=== PATIENT | female | born 1990 | race Caucasian/White ===

== ENCOUNTER 2019-06-30 20:33 | Inpatient (IN) | payer OTHER ==
[2019-06-30] VITALS (15 sets, daily range): BP systolic 104–138; BP diastolic 66–97; BMI 33.6
[~2019-06-30] VITALS: Ht 165.1 cm; Wt 92.0 kg
--- NOTE | 2019-06-30 20:37 | NUR ---
UNABLE TO COMPLETE SUICIDE SCREENING WITH PT
[2019-06-30 21:18] LABS: BASOPHILS 0.1 % (0-2); EOSINOPHILS 0.1 % (0-7); HEMATOCRIT 34.5 % (36.0-48.0); HEMOGLOBIN 11.6 g/dL (12-16); IMMATURE GRANULOCYTES 0.2 % (0-5); LYMPHOCYTES 16.7 % (15-50); MCH 30.4 pg (26.0-34.0); MCHC 33.6 g/dL (31.0-37.0); MCV 90.3 fL (80.0-100.0); MEAN PLATELET VOLUME 9.1 fL (7.4-10.4); MONOCYTES 6.9 % (2-11); PLATELET COUNT 250 10x3/uL (130-400); RBC 3.82 10x6/uL (4.00-5.40); RDW 13.2 % (11.5-14.5); WBC 9.4 10x3/uL (4.8-10.8)
[2019-06-30 21:29] LABS: CALC OSMOLALITY 261 mosm/kg (275-300); CALCIUM 8.4 mg/dL (8.5-10.1); CARBON DIOXIDE 21.4 mmol/L (21.0-32.0); CHLORIDE - SERUM 101 mmol/L (98-107); CREATININE - SERUM 0.8 mg/dL (0.6-1.3); GLUCOSE 128 mg/dL (74-106); INR 1.13 (0.85-1.17); POTASSIUM - SERUM 3.7 mmol/L (3.5-5.1); SODIUM 130 mmol/L (136-145); UREA NITROGEN 9 mg/dL (7-18); eGFR NON AFRICAN AMERICAN 89 mL/min (90-120)
[2019-06-30 21:44] LABS: ALBUMIN 3.3 g/dL (3.4-5.0); ALKALINE PHOSPHATASE 58 U/L (46-116); ALT (SGPT) 25 U/L (10-68); BILIRUBIN - TOTAL 0.49 mg/dL (0.2-1.3); LIPASE 60 U/L (73-393); MAGNESIUM - SERUM 1.7 mg/dL (1.8-2.4); PRO BNP 37 pg/mL (0-125); PROTEIN - SERUM 6.5 g/dL (6.4-8.2)
--- NOTE | 2019-06-30 22:30 | NUR ---
REC'D PT FROM ER, MONITORS ON AND WORKING, VITALS STABLE, PT SEDATED ON VENT, VENT SETTINGS NOTED. EPPS CATH STAT LOCKED IN PLACE. ORDERS REC'D FROM ECONOMICS PROFESSOR. SPOKE WITH POISION CONTROL, RECOMMENDATIONS INCLUDE MONITORING FOR EKG [employer] CHANGES AND HYPOTENSION, WILL CONTINUE TO OBSERVE.
--- NOTE | 2019-06-30 22:30 | NUR ---
UNABLE TO COMPLETE SUICIDE RISK SCREENING AT THIS TIME, PT SEDATED ON VENT.
--- NOTE | 2019-06-30 23:31 | NUR ---
VERSED INTIATIED PER ORDERS. BEAR HUGGER ON, MONITORS ON AND WORKING. UNABLE TO COMPLETE SUICIDE RISK SCREEENING OR PT HISTORY AT THIS TIME, PT IS SEDATED ON VENT. WILL CONTINUE TO OBSERVE.
[2019-07-01] VITALS (34 sets, daily range): BP systolic 104–145; BP diastolic 65–96; Ht 165.1 cm; Wt 92.0 kg
[2019-07-01 00:54] LABS: CKMB 2.8 U/L (0.0-3.6); CREATINE KINASE 188 UL (21-215); TROPONIN-I < 0.017 ng/mL (0.000-0.060)
--- NOTE | 2019-07-01 01:00 | NUR ---
PT SEDATED, PT WAKES UP VERY EASILY, ATTEMPTS TO PULL AT TUBES AND SIT UP, PT DOES NOT FOLLOW PURPOSFUL COMMANDS AT THIS TIME, MONITORS ON AND WORKING, VITALS STABLE. WILL CONTINUE TO OBSERVE.
--- NOTE | 2019-07-01 03:00 | NUR ---
NO CHANGES, MONITORS ON AND WORKING, VITALS STABLE, SEE FLOW SHEET FOR FURTHER DETAILS. WILL CONTINUE TO OBSERVE.
[2019-07-01 03:32] LABS: BASOPHILS 0.1 % (0-2); EOSINOPHILS 0.4 % (0-7); HEMATOCRIT 33.4 % (36.0-48.0); HEMOGLOBIN 11.2 g/dL (12-16); IMMATURE GRANULOCYTES 0.2 % (0-5); LYMPHOCYTES 10.5 % (15-50); MCHC 33.5 g/dL (31.0-37.0); MCV 89.5 fL (80.0-100.0); MEAN PLATELET VOLUME 9.2 fL (7.4-10.4); MONOCYTES 6.5 % (2-11); NEUTROPHILS 82.3 % (40-80); PLATELET COUNT 266 10x3/uL (130-400); RBC 3.73 10x6/uL (4.00-5.40); RDW 13.3 % (11.5-14.5); WBC 11.2 10x3/uL (4.8-10.8)
[2019-07-01 04:32] LABS: ALBUMIN 3.2 g/dL (3.4-5.0); ALKALINE PHOSPHATASE 56 U/L (46-116); ALT (SGPT) 25 U/L (10-68); BILIRUBIN - TOTAL 0.52 mg/dL (0.2-1.3); CALC OSMOLALITY 262 mosm/kg (275-300); CALCIUM 8.3 mg/dL (8.5-10.1); CARBON DIOXIDE 19.4 mmol/L (21.0-32.0); CHLORIDE - SERUM 102 mmol/L (98-107); CKMB 3.5 U/L (0.0-3.6); CREATINE KINASE 165 UL (21-215); CREATININE - SERUM 0.6 mg/dL (0.6-1.3); GLUCOSE 96 mg/dL (74-106); MAGNESIUM - SERUM 1.8 mg/dL (1.8-2.4); PHOSPHOROUS 3.3 mg/dL (2.5-4.9); POTASSIUM - SERUM 3.5 mmol/L (3.5-5.1); PROTEIN - SERUM 6.3 g/dL (6.4-8.2); SODIUM 132 mmol/L (136-145); TROPONIN-I < 0.017 ng/mL (0.000-0.060); UREA NITROGEN 7 mg/dL (7-18); eGFR NON AFRICAN AMERICAN > 90 mL/min (90-120)
--- NOTE | 2019-07-01 05:00 | NUR ---
PT SEDATED ON VENT, MONITORS ON AND WORKING, SPOKE WITH POISON CONTROL FOR A BRIEF FOLLOW UP, NO NEW ORDERS AT THIS TIME, VITALS STABLE, WILL CONTINUE TO OBSERVE.
--- NOTE | 2019-07-01 07:30 | NUR ---
REPORT RECEIVED. ASSESSMENT COMPLETE PER FLOW SHEET. VSS. NO NEW CHANGES PT RESTING COMFORTABLY WILL CONTINUE TO MONITOR
--- NOTE | 2019-07-01 09:00 | NUR ---
DR COLINDRES AT BEDSIDE GIVEN UDPATE
--- NOTE | 2019-07-01 11:20 | NUR ---
REASSESSMENT COMPLETE PER FLOW SHEET. VSS. NO NEW CHANGES WILL CONTINUE TO MONITOR
[2019-07-01 11:54] LABS: UDS - AMPHET NEGATIVE QUAL (NEGATIVE); UDS - BARB NEGATIVE QUAL (NEGATIVE); UDS - BENZO POSITIVE QUAL (NEGATIVE); UDS - COCAINE NEGATIVE QUAL (NEGATIVE); UDS - OPIATE NEGATIVE QUAL (NEGATIVE); UDS - PCP NEGATIVE QUAL (NEGATIVE); UDS - THC NEGATIVE QUAL (NEGATIVE)
--- NOTE | 2019-07-01 13:00 | NUR ---
DR TAVARES AT BEDSIDE GIVEN UDPATE
[2019-07-01 14:08] LABS: CKMB 2.6 U/L (0.0-3.6); CREATINE KINASE 156 UL (21-215); TROPONIN-I < 0.017 ng/mL (0.000-0.060)
--- NOTE | 2019-07-01 15:15 | NUR ---
REPORT RECEIVED ASSESSMENT COMPLETE PER FLOW SHEET. VSS. NO NEW CHANGE SPT RESTING COMFORTABLY WILL CONTINUE TO MONITOR
--- NOTE | 2019-07-01 17:30 | NUR ---
VENT ALARMING RT AT BEDSIDE GIVEN UDPATE NO NEW CHANGES
--- NOTE | 2019-07-01 18:27 | MORECARE ---
CASE MANAGEMENT DISCHARGE SUMMARY PATIENT: LOU SALVADOR UNIT: [id number] ADM DATE: 06/30/19 AGE: 29 : 86 SEX: F ROOM/BED: D.2304 AUTHOR: JAZMIN HARPER PHYSICIAN: REFERRING PHYSICIAN: KUNAL MARSHALL MD DATE OF SERVICE: 07/01/19 Discharge Plan Patient Name: LOU SALVADOR Facility: [facility]:[place] : 1990 Planned Disposition: Anticipated Discharge Date: Discharge Date: Expected LOS: Initial Reviewer: [email or web address] Initial Review Date: 06/30/2019 Generated: 07/01/19 7:26 pm Comments DCP- Discharge Planning Updated by [id number]: Aimee Blankenship on 07/01/19 5:[address] CM attempted to visit with patient regarding discharge planning/ needs. Patient currently on vent no family available. CM will continue to follow and assist as needed with discharge planning / needs Patient Name: LOU SALVADOR Page [phone] at 1827 All edits/amendments must be made on the electronic document DICTATION DATE: 07/01/191825 DIRECTOR OF VOCATIONAL GUIDANCE: RASHAUN 07/01/191825 RPT#: [id number] DC DATE: STATUS: ADM IN [facility] [address] [place] [address] END OF REPORT
--- NOTE | 2019-07-01 19:00 | NUR ---
SHIFT ASSESSMENT COMPLETED. PT CARE ASSUMED. MONITORS ON AND WORKING, PT SEDATED ON VENT, EPPS STAT LOCKED IN PLACE. HEART RATE 117, MD AWARE. SEE FLOW SHEET FOR FURTHER DETIALS. WILL CONTINUE TO OBSERVE.
--- NOTE | 2019-07-01 21:00 | NUR ---
SPOKE WITH POISON CONTROL. NO NEW ORDERS. MONITORS ON AND WORKING, WILL CONTINUE TO OBSERVE.
--- NOTE | 2019-07-01 23:00 | NUR ---
PT TURNED AND REPOSITIONED FOR COMFORT. MONITORS ON AND WORKING, VITALS STABLE. SEE FLOW SHEET FOR FURTHER DETAILS. WILL CONTINUE TO OBSERVE.
[2019-07-02] VITALS (24 sets, daily range): BP systolic 106–140; BP diastolic 64–87
--- NOTE | 2019-07-02 01:00 | NUR ---
PT TURNED AND REPOSITIONED FOR COMFORT, MONITORS ON AND WORKING, VITALS STABLE. WILL CONTINUE TO OBSERVE.
[2019-07-02 02:58] LABS: BASOPHILS 0.1 % (0-2); EOSINOPHILS 0.2 % (0-7); HEMATOCRIT 34.5 % (36.0-48.0); HEMOGLOBIN 11.3 g/dL (12-16); IMMATURE GRANULOCYTES 0.1 % (0-5); LYMPHOCYTES 17.5 % (15-50); MCHC 32.8 g/dL (31.0-37.0); MCV 91.5 fL (80.0-100.0); MEAN PLATELET VOLUME 9.4 fL (7.4-10.4); MONOCYTES 11.1 % (2-11); PLATELET COUNT 250 10x3/uL (130-400); RBC 3.77 10x6/uL (4.00-5.40); RDW 13.9 % (11.5-14.5); WBC 9.6 10x3/uL (4.8-10.8)
--- NOTE | 2019-07-02 03:00 | NUR ---
NO CHANGES, PT TURNED AND REPOSITIONED FOR COMFORT, MONITORS ON AND WORKING, SEE FLOW SHEET FOR FURTHER DETAILS WILL CONTINUE TO OBSERVE.
[2019-07-02 03:23] LABS: ALBUMIN 2.9 g/dL (3.4-5.0); ALKALINE PHOSPHATASE 60 U/L (46-116); ALT (SGPT) 21 U/L (10-68); BILIRUBIN - TOTAL 0.47 mg/dL (0.2-1.3); CALC OSMOLALITY 273 mosm/kg (275-300); CALCIUM 8.5 mg/dL (8.5-10.1); CARBON DIOXIDE 22.6 mmol/L (21.0-32.0); CHLORIDE - SERUM 107 mmol/L (98-107); CREATININE - SERUM 0.8 mg/dL (0.6-1.3); GLUCOSE 93 mg/dL (74-106); MAGNESIUM - SERUM 2.1 mg/dL (1.8-2.4); PHOSPHOROUS 1.9 mg/dL (2.5-4.9); POTASSIUM - SERUM 3.3 mmol/L (3.5-5.1); PROTEIN - SERUM 6.2 g/dL (6.4-8.2); SODIUM 138 mmol/L (136-145); THYROID STIMULATING HORMONE 1.13 uIU/mL (0.36-3.74); TROPONIN-I < 0.017 ng/mL (0.000-0.060); UREA NITROGEN 6 mg/dL (7-18); eGFR NON AFRICAN AMERICAN 89 mL/min (90-120)
--- NOTE | 2019-07-02 05:00 | NUR ---
PT TURNED AND REPOSITIONED FOR COMFORT. MONITORS ON AND WORKING..VITALS STABLE. PT REMAINS SEDATED ON VENT.
--- NOTE | 2019-07-02 07:09 | NUR ---
UNABLE TO DETERMINE ETT SIZE SINCE IS NOT MARKED. PER RT, ALSO UNABLE TO SEE ANY IDENTIFIERS FOR ETT SIZE SINCE NOT PROVIDED ON ETT.
--- NOTE | 2019-07-02 08:05 | NUR ---
LYING IN BED ON VENT AT THIS TIME. NO ACUTE DISTRESS NOTED. VSS. PT AWAKENS TO STIMULATION. TURNED Q2H. ORAL CARE PROVIDED Q2H. WILL CONTINUE PLAN OF CARE.
--- NOTE | 2019-07-02 10:01 | NUR ---
NO ACUTE DISTRESS NOTED. NO CHANGE. VSS. BED ALARM ON. WILL CONTINUE PLAN OF CARE.
--- NOTE | 2019-07-02 11:16 | NUR ---
TEMP SPIKE TO 102.[address] TAVARES NOTIFIED. STATED TO GIVE RECC TYLENOL X 1 DOSE AND TO DO A URINE CULTURE. HE STATED SINCE A BLOOD CULTURE WAS DONE YESTERDAY THEN NO NEED TO RECHECK NOW. NOTIFED PHYSICIAN THAT WOOD [employer]UB NECK WHIPPER DID NOT WANT PT TO RECIEVE TYLENOL BECAUSE SHE WAS POSIT[facility]. ALSO UDS SHOWED HER POSITIVE FOR BENZOS. DR TAVARES STATED SINCE HER LIVER FUNCTIONS ARE NORMAL THEN GO AHEAD AND GIVE THE ONE TIME DOSE OF RECTAL TYLENOL. WILL CONTINUE PLAN OF CARE.
--- NOTE | 2019-07-02 11:55 | NUR ---
PER DR COLINDRES, ALSO OBTAIN BLOOD CULTURES FOR FEVER.
--- NOTE | 2019-07-02 11:59 | NUR ---
CHG BATH PROVIDED WITH TOTAL LINEN CHANGE AT THIS TIME. ALSO EPPS CARE PROVIDED.
--- NOTE | 2019-07-02 12:00 | NUR ---
PER DR COLINDRES, WILL DO A BRONCHOSCOPY TODAY, NO FAMILY CONTACT AVALIABLE ON FACESHEET. PHYSICIAN NOTIFIED OF THIS.
--- NOTE | 2019-07-02 12:08 | NUR ---
PER DR COLINDRES, CHANGE OGT TO LOW INT SUCTIONING.
--- NOTE | 2019-07-02 12:35 | NUR ---
ATTEMPTED TO CALL PTS MOTHER LISTED ON FACESHEET WHICH STATED HER NAME TO BE ZACK BLANTON, WHEN CALLED RECIEVED A VOICEMAIL STATING AIDA BLANTON IS NOT AVALIABLE. LEFT A VOICEMAIL FOR AIDA TO CALL BACK. NO ACUTE DISTRESS NOTED. WILL CONTINUE PLAN OF CARE.
--- NOTE | 2019-07-02 13:28 | NUR ---
NO CALLBACK FROM FAMILY NOTED AT THIS TIME. PER DR COLINDRES WILL DO URGENT BRONCHOSCOPY NOW.
[2019-07-02 13:36] LABS: APPEARANCE CLEAR (CLEAR); BILIRUBIN NEGATIVE (NEGATIVE); COLOR YELLOW (YELLOW); GLUCOSE NEGATIVE (NEGATIVE); KETONE NEGATIVE (NEGATIVE); NITRITE NEGATIVE (NEGATIVE); PROTEIN NEGATIVE (NEGATIVE); UROBILINOGEN NORMAL (NORMAL)
[2019-07-02 13:37] LABS: BACTERIA FEW /hpf (NEGATIVE); EPITHELIAL CELLS 0-5 /hpf (0-5); WHITE CELLS - URINE OCC /hpf (NEGATIVE)
--- NOTE | 2019-07-02 13:53 | NUR ---
RECIEVED CALLBACK FROM PTS MOTHER, AVERY BLANTON, UPDATES PROVIDED. PTS MOTHER ALSO SPOKE WITH DR TAVARES, ALL QUESTIONS AND CONCERNS ADRESSED. PTS MOTHER STATED SHE IS ON HER WAY TO SEE PT.
--- NOTE | 2019-07-02 15:37 | NUR ---
FEVER INCREASED TO 102.8 ICE PACKS PLACED AT THIS TIME.
--- NOTE | 2019-07-02 15:39 | NUR ---
CRITICAL LAB CALLED TO DR TAVARES FOR POTASSIUM LEVEL OF 2.5. HE STATED TO COVER PER ELECTROLYTE PROTOCOL AND ALSO ADD 20MEQ K TO THE D5NS. VSS. WILL CONTINUE PLAN OF CARE.
--- NOTE | 2019-07-02 16:33 | NUR ---
PTS AUNT HERE AT BEDSIDE TO SEE PT, STATING THAT PTS MOTHER WILL BE HERE LATER TONIGHT. CODE WORD PROVIDED BY AUNT. UPDATES PROVIDED AFTER CODE WORD CONFIRMED. VSS. WILL CONTINUE PLAN OF CARE.
--- NOTE | 2019-07-02 16:59 | NUR ---
WILL START TUBE FEEDS WHEN RECIEVE [place] PUMP FROM DEPARTMENT CHAIRPERSON.
--- NOTE | 2019-07-02 17:40 | NUR ---
TEMP RECHECK IS 103.2.
--- NOTE | 2019-07-02 17:45 | NUR ---
ALTHOUGH PT HAS RECIEVED TYLENOL, ROOM TEMPERATURE HAS BEEN DECREASED, LINENS REMOVED, AND ICE PACKS PLACED, PT TEMP HAS INCREASED TO 103.2. CALLED DR TAVARES TO NOTIFY, NO ANSWER NOTED. DR COLINDRES PAGED FOR FURTHER ORDERS. WAITING FOR CALLBACK.
--- NOTE | 2019-07-02 17:47 | NUR ---
DR COLINDRES NOTIFIED OF TEMP OF 103.2, STATED COULD HAVE BEEN EXPECTED AFTER THE BRONCH. OKAY TO GIVE THE PRN TYLENOL.
[2019-07-03] VITALS (23 sets, daily range): BP systolic 102–138; BP diastolic 55–98
[2019-07-03 03:20] LABS: BASOPHILS 0.2 % (0-2); EOSINOPHILS 0.5 % (0-7); HEMATOCRIT 32.9 % (36.0-48.0); IMMATURE GRANULOCYTES 0.2 % (0-5); LYMPHOCYTES 13.3 % (15-50); MCH 30.6 pg (26.0-34.0); MCHC 33.4 g/dL (31.0-37.0); MCV 91.6 fL (80.0-100.0); MEAN PLATELET VOLUME 9.5 fL (7.4-10.4); MONOCYTES 8.9 % (2-11); NEUTROPHILS 76.9 % (40-80); PLATELET COUNT 225 10x3/uL (130-400); RBC 3.59 10x6/uL (4.00-5.40); RDW 13.9 % (11.5-14.5)
[2019-07-03 03:22] LABS: WBC 14.9 10x3/uL (4.8-10.8)
[2019-07-03 05:49] LABS: ALBUMIN 2.5 g/dL (3.4-5.0); ALKALINE PHOSPHATASE 59 U/L (46-116); ALT (SGPT) 21 U/L (10-68); CALC OSMOLALITY 280 mosm/kg (275-300); CALCIUM 7.9 mg/dL (8.5-10.1); CHLORIDE - SERUM 113 mmol/L (98-107); CREATININE - SERUM 0.7 mg/dL (0.6-1.3); GLUCOSE 96 mg/dL (74-106); MAGNESIUM - SERUM 1.9 mg/dL (1.8-2.4); PHOSPHOROUS 1.8 mg/dL (2.5-4.9); POTASSIUM - SERUM 3.5 mmol/L (3.5-5.1); PRO BNP 37 pg/mL (0-125); PROTEIN - SERUM 5.8 g/dL (6.4-8.2); SODIUM 142 mmol/L (136-145); UREA NITROGEN 6 mg/dL (7-18); eGFR NON AFRICAN AMERICAN > 90 mL/min (90-120)
--- NOTE | 2019-07-03 07:30 | NUR ---
LYING IN BED ON VENT AT THIS TIME. VSS. NO ACUTE DISTRESS NOTED. PT IS AFEBRILE. TURNED Q2H. ORAL CARE PROVIDED Q2H. WILL CONTINUE PLAN OF CARE.
--- NOTE | 2019-07-03 09:31 | NUR ---
INCONTINENT BOWEL MOVEMENT NOTED, DARK AND LIQUID. TOTAL LINEN CHANGE PROVIDED, JOSH CARE AND EPPS CARE PROVIDED. NO ACUTE DISTRESS NOTED. CALL LIGHT IN REACH. WILL CONTINUE PLAN OF CARE.
--- NOTE | 2019-07-03 11:31 | NUR ---
PTS MOTHER STATED THAT SHE WANTED TO CHANGE THE CALL IN CODE BECUASE SHE FELT LIKE TOO MANY FAMILY MEMBERS KNEW THE CODE AND SHE WANTED TO CHANGE IT. CALL IN CODE UPDATED FROM [place] TO [place]. ALSO PTS MOTHER STATED SHE WAS GOING TO BRING SMALL KIDS TO SEE PT, PTS MOTHER WAS INFORMED THAT CHILDREN UNDER 14 YEARS OLD ARE UNABLE TO COME INTO THE ICU. VSS. WILL CONTINUE PLAN OF CARE.
--- NOTE | 2019-07-03 12:03 | NUR ---
PT FAMILY CAME IN ROOM WITH A CHILD ABOUT THE AGE OF 12 TO SEE PT, FAMILY NOTIFIED THAT CHILDREN UNDER 14 ARE UNABLE TO COME INTO UNIT PER HOSPITAL POLICY TO HELP PROTECT THE CHILD'S IMMUNE SYSTEM FROM EXPOSURE. SECURITY ESCORTED INDIVIDUALS OUT OF UNIT. NO ACUTE DISTRESS NOTED. WILL CONTINUE PLAN OF CARE.
--- NOTE | 2019-07-03 14:04 | NUR ---
TUBE FEED RATE INCREASED FROM 20 ML/HR TO 30 ML/HR. RESIDUALS NOTED AT 5ML.
--- NOTE | 2019-07-03 14:28 | NUR ---
VISITORS AT BEDSIDE TO SEE PT, REQUESTED UPDATE BUT DID NOT KNOW PASSWORD. NOTIFIED VISITORS THAT WE ARE UNABLE TO GIVE INFORMATION WITHOUT A PASSWORD, THEY STATED THEY WOULD TRY TO GET AHOLD OF PTS MOTHER TO FIND OUT MORE INFORMATION. VSS. NO ACUTE DISTRESS NOTED. WILL CONTINUE PLAN OF CARE.
--- NOTE | 2019-07-03 16:16 | NUR ---
CHG BATH GIVEN TO PT. INCONTINENT BOWEL MOVEMENT NOTED. EPPS CARE PROVIDED ALONG WITH TOTAL LINEN CHANGE. ORAL CARE PROVIDED IS PROVIDED Q2H. TURNED Q2H. NO ACUTE DISTRESS NOTED. VSS. FAMILY AT BEDSIDE AND AFTER CALL IN CODE CONFIRMED THEN UPDATES PROVIDED. NO ACUTE DISTRESS NOTED. WILL CONTINUE PLAN OF CARE.
--- NOTE | 2019-07-03 17:30 | NUR ---
FAMILY AT BEDSIDE AT THIS TIME. NO ACUTE DISTRESS NOTED. VSS. ORAL CARE AND REPOSITIONING PROVIDED Q2H. WILL CONTINUE PLAN OF CARE.
--- NOTE | 2019-07-03 19:00 | NUR ---
SHIFT ASSESSMENT COMPLETE. VS STABLE. NO VISUAL CUES OF DISTRESS NOTED. WILL CONTINUE TO MONITOR.
--- NOTE | 2019-07-03 21:00 | NUR ---
VS STABLE. NO DISTRESS NOTED. WILL MONITOR.
--- NOTE | 2019-07-03 23:00 | NUR ---
VS STABLE. NO DISTRESS NOTED. WILL MONITOR.
[2019-07-04] VITALS (25 sets, daily range): BP systolic 107–139; BP diastolic 61–93
--- NOTE | 2019-07-04 01:00 | NUR ---
VS STABLE. NO DISTRESS NOTED. WILL MONITOR.
--- NOTE | 2019-07-04 03:00 | NUR ---
VS STABLE. NO DISTRESS NOTED. WILL MONITOR.
[2019-07-04 04:02] LABS: BASOPHILS 0.1 % (0-2); EOSINOPHILS 1.6 % (0-7); HEMATOCRIT 33.6 % (36.0-48.0); HEMOGLOBIN 11.2 g/dL (12-16); IMMATURE GRANULOCYTES 0.2 % (0-5); LYMPHOCYTES 19.2 % (15-50); MCH 31.1 pg (26.0-34.0); MCHC 33.3 g/dL (31.0-37.0); MCV 93.3 fL (80.0-100.0); MEAN PLATELET VOLUME 10.4 fL (7.4-10.4); MONOCYTES 9.6 % (2-11); NEUTROPHILS 69.3 % (40-80); PLATELET COUNT 239 10x3/uL (130-400); RDW 14.5 % (11.5-14.5)
[2019-07-04 04:07] LABS: WBC 8.6 10x3/uL (4.8-10.8)
[2019-07-04 04:25] LABS: ALBUMIN 2.6 g/dL (3.4-5.0); ALKALINE PHOSPHATASE 58 U/L (46-116); ALT (SGPT) 26 U/L (10-68); BILIRUBIN - TOTAL 0.87 mg/dL (0.2-1.3); CALC OSMOLALITY 280 mosm/kg (275-300); CALCIUM 8.1 mg/dL (8.5-10.1); CARBON DIOXIDE 18.5 mmol/L (21.0-32.0); CHLORIDE - SERUM 112 mmol/L (98-107); GLUCOSE 102 mg/dL (74-106); MAGNESIUM - SERUM 1.8 mg/dL (1.8-2.4); POTASSIUM - SERUM 4.1 mmol/L (3.5-5.1); PROTEIN - SERUM 5.6 g/dL (6.4-8.2); SODIUM 142 mmol/L (136-145); UREA NITROGEN 7 mg/dL (7-18)
[2019-07-04 04:28] LABS: CREATININE - SERUM 0.5 mg/dL (0.6-1.3)
[2019-07-04 04:29] LABS: eGFR NON AFRICAN AMERICAN > 90 mL/min (90-120)
--- NOTE | 2019-07-04 05:00 | NUR ---
VS STABLE. NO DISTRESS NOTED. WILL MONITOR.
--- NOTE | 2019-07-04 07:00 | NUR ---
PT REPORT RECEIVED FROM CLINICAL PSYCHOLOGY TEACHER NURSE. SHIFT ASSESSMENT COMPLETED. NO VISIBLE SIGNS OF DISTRESS NOTED. WILL CONTINUE TO MONITOR
--- NOTE | 2019-07-04 08:30 | NUR ---
PT HAD BM. CLEANED UP PT AND CHANGED LINEN. PT TOLERATED WELL. WILL CONTINUE TO MONITOR
--- NOTE | 2019-07-04 09:00 | NUR ---
PT RESTING IN BED. NO VISIBLE SIGNS OF DISTRESS NOTED. WILL CONTINUE TO MONITOR
--- NOTE | 2019-07-04 09:27 | NUR ---
NUTRITION F/U PT REMAINS ON VENT. TOLERATING PULMOCARE TUBE FEEDS AT 40 CC/HR WITH GOAL RATE 45 CC/HR. WILL CONTINUE TO PROVIDE PULMOCARE, MONITOR PT PROGESS. RD FOLLOWING
--- NOTE | 2019-07-04 11:00 | NUR ---
PT RESTING IN BED. REASSESSMENT COMPLETED. WILL CONTINUE TO MONITOR
--- NOTE | 2019-07-04 13:00 | NUR ---
PT HAD BM. CLEANED PT UP AND CHANGED LINEN. WILL CONTINUE TO MONITOR
--- NOTE | 2019-07-04 15:00 | NUR ---
PT HAD ANOTHER BM. CLEANED PT UP AND CHANGED LINEN. REASSESSMENT COMPLETED AT THIS TIME. WILL CONTINUE TO MONITOR
--- NOTE | 2019-07-04 17:00 | NUR ---
PT RESTING IN BED. NO VISIBLE SIGNS OF DISTRESS NOTED. WILL CONTINUE TO MONIITOR
[2019-07-05] VITALS (25 sets, daily range): BP systolic 111–164; BP diastolic 59–98
[2019-07-05 04:48] LABS: BASOPHILS 0.3 % (0-2); EOSINOPHILS 2.1 % (0-7); HEMATOCRIT 30.4 % (36.0-48.0); HEMOGLOBIN 9.9 g/dL (12-16); IMMATURE GRANULOCYTES 0.6 % (0-5); LYMPHOCYTES 18.4 % (15-50); MCH 30.1 pg (26.0-34.0); MCHC 32.6 g/dL (31.0-37.0); MCV 92.4 fL (80.0-100.0); MEAN PLATELET VOLUME 9.8 fL (7.4-10.4); MONOCYTES 10.5 % (2-11); NEUTROPHILS 68.1 % (40-80); PLATELET COUNT 244 10x3/uL (130-400); RBC 3.29 10x6/uL (4.00-5.40); RDW 14.3 % (11.5-14.5); WBC 6.7 10x3/uL (4.8-10.8)
[2019-07-05 05:23] LABS: ALBUMIN 2.4 g/dL (3.4-5.0); ALKALINE PHOSPHATASE 56 U/L (46-116); ALT (SGPT) 20 U/L (10-68); BILIRUBIN - TOTAL 0.34 mg/dL (0.2-1.3); CALC OSMOLALITY 283 mosm/kg (275-300); CALCIUM 7.5 mg/dL (8.5-10.1); CARBON DIOXIDE 18.5 mmol/L (21.0-32.0); CHLORIDE - SERUM 114 mmol/L (98-107); CREATININE - SERUM 0.5 mg/dL (0.6-1.3); GLUCOSE 84 mg/dL (74-106); MAGNESIUM - SERUM 1.7 mg/dL (1.8-2.4); PHOSPHOROUS 3.6 mg/dL (2.5-4.9); POTASSIUM - SERUM 3.9 mmol/L (3.5-5.1); PROTEIN - SERUM 5.1 g/dL (6.4-8.2); SODIUM 144 mmol/L (136-145); UREA NITROGEN 8 mg/dL (7-18); eGFR NON AFRICAN AMERICAN > 90 mL/min (90-120)
--- NOTE | 2019-07-05 07:00 | NUR ---
PT REPORT RECEIVED FROM RRT NURSE. NO VISIBLE SIGNS OF DISTRESS NOTED. SHIFT ASSESSMENT COMPLETED. WILL CONTINUE TO MONITOR
--- NOTE | 2019-07-05 09:00 | NUR ---
PT RESTING IN BED. FAMILY AT BEDSIDE. NO VISIBLE SIGNS OF DISTRESS NOTED. ORAL CARE PROVIDED. WILL CONTINUE TO MONITOR
--- NOTE | 2019-07-05 10:30 | NUR ---
DR COLINDRES AT BEDSIDE. UPDATE GIVEN. PLAN TO DO A BRONCHOSCOPY ON PT THEN START WITH CPAP TRIALS. PT IS COMBATIVE KICKING AT STAFF. WILL CONTINUE TO MONITOR
--- NOTE | 2019-07-05 10:40 | NUR ---
CONSENT FOR BRONCHOSCOPY SIGNED BY PT MOTHER. WILL CONITNUE TO MONITOR
--- NOTE | 2019-07-05 11:15 | NUR ---
BRONCHOSCOPY COMPLETED. PT TOLERATED WELL. NO VISIBLE SIGNS OF DISTRESS NOTED. REASSESSMENT COMPLETED. WILL CONTINUE TO MONITOR
--- NOTE | 2019-07-05 13:00 | NUR ---
PT RESTING IN BED. SLIGHTLY AGITATED. PT HAD BM. CLEANED UP AND CHANGED LINEN. WILL CONTINUE TO MONITOR
--- NOTE | 2019-07-05 14:00 | NUR ---
CPAP TRIAL STARTED. NO VISIBLE SIGNS OF DISTRESS NOTED. WILL CONTINUE TO MONITOR PT.
--- NOTE | 2019-07-05 14:06 | MORECARE ---
CASE MANAGEMENT DISCHARGE SUMMARY PATIENT: LOU SALVADOR UNIT: [id number] ADM DATE: 06/30/19 AGE: 29 : 86 SEX: F ROOM/BED: D.2304 AUTHOR: JAZMIN HARPER PHYSICIAN: REFERRING PHYSICIAN: KUNAL MARSHALL MD DATE OF SERVICE: 07/05/19 Discharge Plan Patient Name: LOU SALVADOR Facility: [facility]:[place] : 1990 Planned Disposition: Anticipated Discharge Date: Discharge Date: Expected LOS: Initial Reviewer: [email or web address] Initial Review Date: 07/04/2019 Generated: 07/05/19 3:06 pm DCP- Discharge Planning Updated by AD: Aimee Blankenship on 07/01/19 5:[address] CM attempted to visit with patient regarding discharge planning/ needs. Patient currently on vent no family available. CM will continue to follow and assist as needed with discharge planning / needs DCPIA - Discharge Planning Initial Assessment Updated by [email or web address]: Aimee Blankenship on 07/05/19 2:04 pm * How many steps to enter\exit or inside your home? * PCP unknown * Pharmacy unkown * Preadmission Environment Home Alone * ADLs Independent * Equipment None * List name and contact numbers for known caregivers / representatives who currently or will assist patient after discharge: Kelley Ballard - mother- [phone] * Verbal permission to speak to the caregivers and representatives has been obtained from the patient. N/A * Community resources currently utilized None Last DP export: 07/01/19 5:27 Patient Name: LOU SALVADOR Page [phone] at 1406 All edits/amendments must be made on the electronic document DICTATION DATE: 07/05/191405 PAINTING TECHNICIAN: RASHAUN 07/05/191405 RPT#: [id number] DC DATE: STATUS: ADM IN [facility] [address] [place] [address] END OF REPORT
--- NOTE | 2019-07-05 14:15 | NUR ---
CPAP TRIAL STOPPED. PT EXTREMELY ANXIOUS. TACHYPNIC. WILL CONTINUE TO MONITOR
--- NOTE | 2019-07-05 14:16 | MORECARE ---
CASE MANAGEMENT DISCHARGE SUMMARY PATIENT: LOU SALVADOR UNIT: [id number] ADM DATE: 06/30/19 AGE: 29 : 86 SEX: F ROOM/BED: D.2304 AUTHOR: LEROY,DOC PHYSICIAN: REFERRING PHYSICIAN: KUNAL MARSHALL MD DATE OF SERVICE: 07/05/19 Discharge Plan Patient Name: LOU SALVADOR Facility: [facility]:[place] : 1990 Planned Disposition: Anticipated Discharge Date: Discharge Date: Expected LOS: Initial Reviewer: [email or web address] Initial Review Date: 07/04/2019 Generated: 07/05/19 3:15 pm Comments DCP- Discharge Planning Updated by [email or web address]: Aimee Blankenship on 07/05/19 1:[address] LATE ENTRY 07/04/19 Patient Name: LOU SALVADOR Admission Status: ER Accout number: [id number] Admission Date: 06-30-2019 : 1990 Admission Diagnosis: Attending: KUNAL CROSS Current LOS: 5 Anticipated DC Date: Planned Disposition: Primary Insurance: [facility] Discharge Planning Comments: CM met with patient's mother Kelley Ballard to complete initial dc planning assessment. Patient is currently still on ventilator. CM educated patient's mother on the CM role and verbal consent given by patient to complete assessment. Patient's mother doesn't know much of the information CM asked. Patient will most likely need some psychiatric care post discharge. Uncertain of disposition at this. CM will continue to follow and will assist as needed with dc plans/needs. Cell Builder: Aimee Blankenship DCP- Discharge Planning Updated by [id number]: Aimee Blankenship on 07/01/19 5:[address] CM attempted to visit with patient regarding discharge planning/ needs. Patient currently on vent no family available. CM will continue to follow and assist as needed with discharge planning / needs DCPIA - Discharge Planning Initial Assessment Updated by [email or web address]: Aimee Blankenship on 07/05/19 2:04 pm * How many steps to enter\exit or inside your home? * PCP unknown * Pharmacy unkown * Preadmission Environment Home Alone * ADLs Independent * Equipment None * List name and contact numbers for known caregivers / representatives who currently or will assist patient after discharge: Kelley Ballard - mother- [phone] * Verbal permission to speak to the caregivers and representatives has been obtained from the patient. N/A * Community resources currently utilized None Last DP export: 07/05/19 1:06 Patient Name: LOU SALVADOR Page [phone] at 1416 All edits/amendments must be made on the electronic document DICTATION DATE: 07/05/191414 HULL INSPECTOR: RASHAUN 07/05/191414 RPT#: [id number] DC DATE: STATUS: ADM IN [facility] [address] [place] [address] END OF REPORT
--- NOTE | 2019-07-05 14:30 | NUR ---
PT TRIED CLIMBING OUT OF BED. SEDATION INCREASED. PT LAYING BACK DOWN NOW. WILL CONTINUE TO MONITOR
--- NOTE | 2019-07-05 15:00 | NUR ---
PT RESTING IN BED. NO VISIBLE SIGNS OF DISTRESS NOTED. REASSESSMENT COMPLETED. WILL CONTINUE TO MONITOR
--- NOTE | 2019-07-05 17:00 | NUR ---
PT RESTING IN BED. NO VISIBLE SIGNS OF DISTRESS NOTED. WILL CONTINUE TO MONITOR
--- NOTE | 2019-07-05 19:00 | NUR ---
SHIFT ASSESSMENT COMPLETED. PT CARE ASSUMED. MONITORS ON AND WORKING, VITALS STABLE. SEE FLOW SHEET FOR FURTHER DETAILS WILL CONTINUE TO OSBERVE.
--- NOTE | 2019-07-05 21:00 | NUR ---
FAMILY AT BEDSIDE, UPDATE PROVIDED, MONITORS ON AND WORKING, VITALS STABLE. PT TURNED AND REPOSITIONED FOR COMFORT. WILL CONTINUE TO OBSERVE.
--- NOTE | 2019-07-05 23:00 | NUR ---
PT TURNED AND REPOSITIONED FOR COMFORT, MONITORS ON AND WORKING VITALS STABLE. SEE FLOW SHEET FOR FURTHER DETAILS. WILL CONTINUE TO OBSERVE.
[2019-07-06] VITALS (24 sets, daily range): BP systolic 120–163; BP diastolic 55–107
--- NOTE | 2019-07-06 01:00 | NUR ---
PT TURNED AND REPOSITIONED FOR COMFORT, ORAL CARE PROVIDED AT THIS TIME WELL. MONITORS ON AND WORKING, VITALS STABLE, EPPS STAT LOCKED IN PLACE, WILL CONTINUE TO OBSERVE.
--- NOTE | 2019-07-06 03:00 | NUR ---
PT TURNED AND REPOSITIONED FOR COMFORT, MONITORS ON AND WORKING, VITALS STABLE. NO FURTHER CHANGES AT THIS POINT, SEE FLOW SHEET FOR FURTHER DETAILS. WILL CONTINUE TO OBSERVE.
[2019-07-06 05:00] LABS: CALC OSMOLALITY 285 mosm/kg (275-300); CALCIUM 8.6 mg/dL (8.5-10.1); CHLORIDE - SERUM 110 mmol/L (98-107); CREATININE - SERUM 0.5 mg/dL (0.6-1.3); GLUCOSE 96 mg/dL (74-106); POTASSIUM - SERUM 3.9 mmol/L (3.5-5.1); SODIUM 144 mmol/L (136-145); UREA NITROGEN 9 mg/dL (7-18); eGFR NON AFRICAN AMERICAN > 90 mL/min (90-120)
--- NOTE | 2019-07-06 05:00 | NUR ---
PT TURNED AND REPOSITIONED FOR COMFORT, MONITORS ON AND WORKING, VITALS STABLE. NO FURTHER CHANGES NOTED AT THIS TIME. WILL CONTINUE TO OBSERVE.
[2019-07-06 05:02] LABS: CARBON DIOXIDE 23.3 mmol/L (21.0-32.0)
[2019-07-06 06:24] LABS: BASOPHILS 0.3 % (0-2); EOSINOPHILS 2.8 % (0-7); HEMATOCRIT 30.9 % (36.0-48.0); HEMOGLOBIN 10.4 g/dL (12-16); IMMATURE GRANULOCYTES 0.1 % (0-5); LYMPHOCYTES 18.5 % (15-50); MCHC 33.7 g/dL (31.0-37.0); MEAN PLATELET VOLUME 9.5 fL (7.4-10.4); MONOCYTES 9.5 % (2-11); NEUTROPHILS 68.8 % (40-80); PLATELET COUNT 270 10x3/uL (130-400); RBC 3.36 10x6/uL (4.00-5.40); WBC 6.8 10x3/uL (4.8-10.8)
--- NOTE | 2019-07-06 07:00 | NUR ---
REPORT RECEIVED. ASSESSMENT COMPLETE PER FLOW SHEET. VSS. ORAL ENODTRACH CARE ADM. REPOSITIONED FOR COMFORT WILL CONTINUE TO MONITOR
--- NOTE | 2019-07-06 08:47 | NUR ---
Nutrition follow-up: Pt remains intubated; weaning trials today Pulmocare infusing @ 45 ml/hr; pt tolerating Labs reviewed Wt: 208# +BM RDN following.
--- NOTE | 2019-07-06 09:15 | NUR ---
FAMILY AT BEDSIDE GIVEN UPDATE
--- NOTE | 2019-07-06 11:00 | NUR ---
REASSESSMENT COMPLETE PER FLOW SHEET VSS NO NEW CHANGES WILL CONTINUE TO MONITOR
--- NOTE | 2019-07-06 11:56 | NUR ---
RESP AT BEDSIDE. OBTAINING BLOOD GAS
--- NOTE | 2019-07-06 13:15 | NUR ---
FAMILY AT BEDSIDE EXPLAINED NEW VISITING AND RULES AT GREAT LENGTH. STATED UNDERSTANDING.
--- NOTE | 2019-07-06 14:21 | NUR ---
PT UNABLE TO SPEAK AT THIS TIME AND IS VERY CONFUSED. WILL ATTEMPT ASSESSMENT AT A LATER TIME. SITTER AT BEDSIDE DUE TO PREVIOUS ATTEMPT OF SUICIDE BY OVERDOSE. PT UNABLE TO COMPLETE AND AGREE TO SAFETY PLAN AT THIS TIME. ENVIRONMENTAL CHECKLIST COMPLETED BUT SOME EQUIPMENT LEFT IN ROOM DUE TO MEDICAL MANAGEMENT.
--- NOTE | 2019-07-06 15:00 | NUR ---
REASSESSMENT COMPLETE PER FLOW SHEET. VSS. NO NEW CHANGES WILL CONTINUE TOMONITOR
[2019-07-06 15:09] LABS: HSV 1 DNA (PCR) Negative (Negative)
--- NOTE | 2019-07-06 17:00 | NUR ---
FAMILY CALLED GIVEN UDPATE. NO NEW CHANGES PT RESTING COMFORTABLY WILL CONTINUE TO MONITOR
--- NOTE | 2019-07-06 19:15 | NUR ---
REPORT RECIEVED, SHIFT ASSESSMENT COMPLETE, PT IS CONFUSED LYING IN BED, ON 3L NC WITH 97% O2 SAT. ALL PPP, VSS, CALL LIGHT IN REACH
--- NOTE | 2019-07-06 21:00 | NUR ---
NO VISITORS AT THIS TIME, SITTER AT BEDSIDE,
--- NOTE | 2019-07-06 23:00 | NUR ---
REASSESSMENT COMPLETE, NO CHANGES NOTED, PT RESTING AT THIS TIME, VSS, CALL LIGHT IN REACH
[2019-07-07] VITALS: BP 145/93
--- NOTE | 2019-07-07 01:00 | NUR ---
PT REFUSING TO WEAR B/P CUFF AT THIS TIME,
[2019-07-07 03:00] VITALS: BP 138/94
--- NOTE | 2019-07-07 03:30 | NUR ---
PT AWAKE WATCHING TV, DENIES ANY NEEDS, SITTER AT BEDSIDE,
--- NOTE | 2019-07-07 05:15 | NUR ---
PT REFUSING CARE, BLOOD DRAW AND CXR, EXPLAINED NEED OF POC, PT STILL REFUSED
--- NOTE | 2019-07-07 07:00 | NUR ---
REPORT RECEIVED. ASSESSMENT COMPLETE PER FLOW SHEET. VSS. PT REFUSING CARE AND TREATMENT. WILL CONTINUE TO MONITOR
--- NOTE | 2019-07-07 11:00 | NUR ---
REASSESSMENT COMPLETE PER FLOW SHEET. NO NEW CHANGES PT REFUSING ALL CARE
--- NOTE | 2019-07-07 11:50 | NUR ---
DR KIM AT BEDSIDE GIVEN UPDATE. NEW ORDERS RECEIVED
--- NOTE | 2019-07-07 12:23 | NUR ---
DR COLINDRES AT BEDSIDE GIVEN UDPATE.
[2019-07-07] MEDS ORDERED: LEVOFLOXACIN500 MG PO (13:17)
[2019-07-07 14:10] LABS: ACID FAST SMEAR Negative (()); AFB SPECIMEN PROCESSING Concentration (())
--- NOTE | 2019-07-07 15:20 | NUR ---
PT LEFT VIA EMS STRETCHER. VSS UPON DISCHARGE. NEEDS MET
--- NOTE | 2019-07-07 15:39 | NUR ---
PT REFUSED SUICIDE ASSESSMENT. PT CONTINUED TO STATE, "I DON'T WANT TO KILL MYSELF. I WANT TO LIVE."
[2019-07-08 07:13] LABS: HSV 2 DNA (PCR) Negative (Negative)
[2019-07-08 10:10] LABS: FUNGUS STAIN Final report (())
--- NOTE | 2019-07-08 12:51 | MORECARE ---
CASE MANAGEMENT DISCHARGE SUMMARY PATIENT: LOU SALVADOR UNIT: [id number] ADM DATE: 06/30/19 AGE: 29 : [birth year] SEX: F ROOM/BED: D.2304 AUTHOR: LEROY,DOC PHYSICIAN: REFERRING PHYSICIAN: KUNAL MARSHALL MD DATE OF SERVICE: 07/08/19 Discharge Plan Patient Name: LOU SALVADOR Facility: [facility]:[place] : 1990 Planned Disposition: Anticipated Discharge Date: Discharge Date: 07/07/2019 Expected LOS: Initial Reviewer: [email or web address] Initial Review Date: 07/04/2019 Generated: 07/08/19 1:51 pm Comments DCP- Discharge Planning Updated by [email or web address]: Aimee Blankenship on 07/08/19 11:[address] LATE ENTRY 07/07/19 CM notified that patient is considered medically stable and needs placement to inpatient psych facility. Nursing stated they have already faxed records to transfer center and initiated transfer request. CM later notified that patient was accepted to [facility] psych unit and was transferred via ambulance. DCP- Discharge Planning Updated by [email or web address]: Aimee Blankenship on 07/05/19 1:[address] LATE ENTRY 07/04/19 Patient Name: LOU SALVADOR Admission Status: ER Accout number: [id number] Admission Date: 06-30-2019 : 1990 Admission Diagnosis: Attending: KUNAL CROSS Current LOS: 5 Anticipated DC Date: Planned Disposition: Primary Insurance: [employer] Discharge Planning Comments: CM met with patient's mother Kelley Ballard to complete initial dc planning assessment. Patient is currently still on ventilator. CM educated patient's mother on the CM role and verbal consent given by patient to complete assessment. Patient's mother doesn't know much of the information CM asked. Patient will most likely need some psychiatric care post discharge. Uncertain of disposition at this. CM will continue to follow and will assist as needed with dc plans/needs. Political Science Professor: Aimee Blankenship DCP- Discharge Planning Updated by [email or web address]: Aimee Blankenship on 07/01/19 5:[address] CM attempted to visit with patient regarding discharge planning/ needs. Patient currently on vent no family available. CM will continue to follow and assist as needed with discharge planning / needs DCPIA - Discharge Planning Initial Assessment Updated by [email or web address]: Aimee Blankenship on 07/05/19 2:04 pm * How many steps to enter\exit or inside your home? * PCP unknown * Pharmacy unkown * Preadmission Environment Home Alone * ADLs Independent * Equipment None * List name and contact numbers for known caregivers / representatives who currently or will assist patient after discharge: Kelley Ballard - [facility]- [phone] * Verbal permission to speak to the caregivers and representatives has been obtained from the patient. N/A * Community resources currently utilized None Last DP export: 07/05/19 1:16 Patient Name: LOU SALVADOR Page [id number] at 1251 All edits/amendments must be made on the electronic document DICTATION DATE: 07/08/19 1251 SOIL TECHNICIAN: RASHAUN 07/08/19 1251 RPT#: [id number] DC DATE:07/07/19 STATUS: DIS IN [facility] [address] [place] [address] END OF REPORT
--- NOTE | 2019-07-08 15:04 | CN ---
PATIENT NAME:LORNA SALVADOR MEDICAL RECORD: [id number] : [birth year] LOCATION:[facility].2304 ADMIT DATE: 06/30/19 ACCOUNT: [id number] CONSULTING PHYSICIAN: DENNISE KIM MD REFERRING PHYSICIAN: KUNAL MARSHALL MD DATE OF CONSULTATION: 07/07/2019 PSYCHIATRIC CONSULTATION IDENTIFYING DATA: The patient is 29 years old and she is admitted to the hospital on a voluntary basis. CHIEF COMPLAINT: Overdose. HISTORY OF PRESENT ILLNESS: The patient was found in [place] next to the grave of her late confused. She was brought to the local hospital, became increasingly obtunded and was subsequently transferred here for a higher level of care. She was positive for benzodiazepine and it was thought that perhaps she had taken a tricyclic with it based upon some circumstantial data. She was intubated here and recently has been extubated. She is awake, alert and with a sitter because of the suspected overdose. The sitter tells me that Lorna has been talking to her some and it has been appropriate. Lorna will not talk to me, although it is clear from the way she is looking at me and following what I am saying as well as making some facial expressions that she is understanding what I say. She will not give me an explanation as to what happened. Mental status examination is not possible. ASSESSMENT: 1. 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 2. Status post overdose of a benzodiazepine and possibly a tricyclic antidepressant. 3. Major depressive episode. PLAN: At this time, the patient is uncooperative. She is not letting the staff draw blood, check a chest x-ray or vital signs. She will not tell me why even though she is capable of doing so. The circumstances that brought her here are alarming and described above. It is my opinion that she intended to hurt herself and that she is potentially dangerous. She should not be allowed to leave the hospital and she should be required to submit to lifesaving interventions. She currently has a pneumonia and is on vancomycin. It is important to treat her for the pneumonia even if it is involuntarily. I have explained to her that this is what is going to happen. I will order scheduled and p.r.n. medications to help prevent any agitation and allow management. If she refuses to go to an inpatient psychiatric facility once medically stabilized, she should be sent against her will. TRANSINT:[id number] Voice Confirmation ID: [id number] DOCUMENT ID: [id number] CONSULT REPORT [id number] LORNA SALVADOR PETER MD at 1504 CC: [id number] DICTATION DATE: 07/07/19 1205 HEALTH INFORMATION ASSISTANT: 07/07/19 1244 DIS IN 07/07/19 [id number] [place] [address]
[2019-07-11 13:09] LABS: FUNGUS MYCOLOGY CULTURE Preliminary report (())
[2019-07-13 07:09] LABS: FUNGUS CULTURE RESULT 1 Candida lipolytica (())
== END 2019-07-07 17:38 | disposition short-term general hospital (02) | DRG 917 ==
LOC: D.ER 20:33 → D.ICU 20:57
PROVIDERS: Emergency Medicine; Family Medicine; Internal Medicine Pulmonary Disease; ADMIT Family Medicine; ATTEND Family Medicine
PROC: 5A1955Z Respiratory Ventilation, Greater than 96 Consecutive Hours (ICD-10-PCS; principal; 2019-06-30)
PROC: 0B9B8ZZ Drainage of Left Lower Lobe Bronchus, Via Natural or Artificial Opening Endoscopic (ICD-10-PCS; 2019-07-02)
PROC: 0B968ZZ Drainage of Right Lower Lobe Bronchus, Via Natural or Artificial Opening Endoscopic (ICD-10-PCS; 2019-07-02)
PROC: 0B9B8ZZ Drainage of Left Lower Lobe Bronchus, Via Natural or Artificial Opening Endoscopic (ICD-10-PCS; 2019-07-05)
PROC: 0B968ZZ Drainage of Right Lower Lobe Bronchus, Via Natural or Artificial Opening Endoscopic (ICD-10-PCS; 2019-07-05)
DX: T50.902A Poisoning by unspecified drugs, medicaments and biological substances, intentional self-harm, initial encounter (principal); J96.00 Acute respiratory failure, unspecified whether with hypoxia or hypercapnia; J69.0 Pneumonitis due to inhalation of food and vomit; A41.9 Sepsis, unspecified organism; E87.2 Acidosis; E87.1 Hypo-osmolality and hyponatremia; Y92.9 Unspecified place or not applicable; E83.42 Hypomagnesemia; D64.9 Anemia, unspecified; D72.829 Elevated white blood cell count, unspecified; R00.0 Tachycardia, unspecified